=== PATIENT | male | born 1985 | race Caucasian/White ===

== ENCOUNTER 2018-08-16 13:41 | Emergency (ER) | payer OTHER, SELFPAY ==
[2018-08-16 13:42] VITALS: BP 157/100; PULSE 71; RESP 16; TEMP 36.9; O2SAT 100; BMI 27.5
[2018-08-16 14:02] VITALS: BP 151/94; PULSE 61; RESP 16; O2SAT 100
[2018-08-16 15:00] VITALS: BP 144/99; PULSE 61; RESP 16; O2SAT 100
--- NOTE | 2018-08-16 15:12 | ED.DCSUM_ITS ---
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 He presents with intermittent sacral low back pain that he describes as twinges. It became more severe over the last 12-24 hours. He localizes it to the sacral area and pain over the left and right issue tuberosity. He denies bowel or bladder dysfunction. He denies saddle paresthesia or anesthesia. He denies foot drop or quadricep weakness. He reports pushing on the sacral area results in improvement of his pain. Certain movements make it worse certain movements make it better. There is no history of trauma. Physical Examination: Blood pressure is elevated 144/99 heart rate 61 respirations 16 pulse ox 100% he is afebrile he appears in no discomfort. HEENT exam is unremarkable. Abdomen soft nontender bowel sounds are present normal. There is no paraspinal megaly. There is no palpable pulsatile mass. There is no abdominal bruit. Examination of the back and abdomen reveal no evidence of trauma. There is no pain palpation over the back. He had pain to palpation over the right and left issue tuberosity. Patella and ankle reflexes 2+. DP pulses palpable bilaterally. Straight leg test is negative. Gait was observed and normal with no foot drop. Test Results: None Emergency Department Course and Treatment: Patient was informed his pain is mechanical i.e. muscular skeletal low back not related to his aneurysm. Since Tylenol had no effect recommended anti-inflammatories as he has no contraindication. Treatment Plan: [id number] anti-inflammatory medication Disposition: Discharged home Impression: Low back pain without sciatica History of iliac artery aneurysm stenting History of chronic dissection of the SMA This note was generated with [employer] dictation software. It may contain incorrect words, spelling, and punctuation that were not noted in review of the chart prior to signing ED Disposition - Plan for ED Patient: Disposition: Home or Assisted Living Chief Complaint: Back Instructions: ED Neck Back Pain General Referrals: [facility] Doctor,Out of [Primary Care Provider] - 1 Week
[2018-08-16 15:18] VITALS: BP 144/99; PULSE 61; RESP 16; O2SAT 100
== END 2018-08-16 15:34 | disposition home or self-care (01) ==
LOC: ED 15:29
PROVIDERS: Emergency Provider Emergency Medicine
DX: M54.5 Low back pain (principal); R03.0 Elevated blood-pressure reading, without diagnosis of hypertension; I72.3 Aneurysm of iliac artery; Z98.890 Other specified postprocedural states
CPT/HCPCS: 99282

== ENCOUNTER 2018-11-03 12:25 | Emergency (ER) | payer OTHER, SELFPAY ==
[2018-11-03 12:25] VITALS: BP 148/101; PULSE 75; RESP 14; TEMP 36.8; O2SAT 95; BMI 26.6
--- NOTE | 2018-11-03 12:52 | RAD_ITS ---
STUDY: X-RAY CHEST REASON FOR EXAM: Male, 33 years old. Chest pain. TECHNIQUE: Single AP portable view of the chest. COMPARISON: None. FINDINGS: EKG electrodes are seen. The lungs are clear and expanded. Scattered calcified granulomas. There is no demonstrated pleural abnormality. Normal size heart. Normal mediastinum and yair. Normal visualized pulmonary arteries. Normal visualized aortic arch and descending thoracic aorta. Normal visualized thoracic spine. Normal visualized ribs, clavicles, and shoulders. There is no demonstrated abnormality of the visualized soft tissue structures of the upper abdomen. RAD/Chest 1 View (Portable) IMPRESSION: Normal x-ray examination of the chest. Electronically Signed: Lamonte Garduno MD at 13:59 EST , Service support ,
--- NOTE | 2018-11-03 12:52 | EKG12_ITS ---
Test Reason : CP Blood Pressure : / mmHG Vent. Rate : 074 BPM Atrial Rate : 074 BPM P-R Int : 148 ms QRS Dur : 104 ms QT Int : 410 ms P-R-T Axes : 075 071 056 degrees QTc Int : 455 ms Normal sinus rhythm Low voltage QRS Borderline ECG Confirmed by JIMMY CONTEH, BARBARA ([id number]), science editor TK DONOHUE ([id number]) on 11/15/2018 9:06:33 AM Referred By: SHERRY Confirmed By:BARBARA MARQUEZ MD
[2018-11-03 13:08] LABS: Absolute Neutrophil Count 7.8 X10^3/uL (2.0-7.7); Basophil# 0.01 X10^3/uL; Basophil% 0.1 % (0-1); Eosinophil# 0.08 X10^3/uL; Eosinophils% 0.8 % (0-5); Hematocrit 44.4 % (40-54); Hemoglobin 15.5 g/dl (13.0-16.5); Lymphocyte % 16.7 % (19-41); Mean Corp Hgb Conc 34.9 g/gl (32-36); Mean Corpuscular Hgb 29.4 pg (27.0-32.0); Mean Corpuscular Volume 84.3 fL (80-94); Mean Platelet Vol. 10.6 fl (6.2-12.0); Monocyte# 0.56 X10^3/uL; Monocyte% 5.5 % (0-10); Neutrophil # 7.84 X10^3/uL (2.7-7.7); Neutrophil % 76.7 % (47-70); Platelet Count 278 K/mm3 (150-450); RBC Distribution Width CV 12.1 % (11.6-14.6); RBC Distribution Width SD 36.6 fl (35.1-43.9); Red Blood Count 5.27 M/mm3 (4.6-6.2); White Blood Count 10.2 K/mm3 (4.4-11.0)
[2018-11-03 13:09] LABS: POSITIVE COUNT NO; POSITIVE DIFFERENTIAL NO; POSITIVE MORPHOLOGY NO
[2018-11-03 13:17] LABS: D-Dimer Quantitative (DVT/PE) 1.91 FEU/ug/m (0.27-0.49)
[2018-11-03 13:27] LABS: Anion Gap 8 (5-15); BUN 14 mg/dL (7-18); BUN/Creat Ratio 11.3 RATIO (10-20); Calcium,Total 9.1 mg/dL (8.5-10.1); Chloride 104 mmol/L (98-107); Creatinine, Serum 1.24 mg/dL (0.70-1.30); EST Glomerular Filtration Rate 72 mL/min (>60); Est Glom Filt Rate - Afr Amer 87 mL/min (>60); Estimated Creatinine Clearance 88.31 ml/min; Glucose 128 mg/dL (74-106); Lipase 75 U/L (73-393); Potassium 3.8 mmol/L (3.5-5.1); Sodium Level 138 mmol/L (136-145)
[2018-11-03 13:34] VITALS: BP 138/96; PULSE 67; RESP 16; O2SAT 98
[2018-11-03] MEDS: 0.9% Normal Saline 1,000 ML 150 ML IV (13:39)
[2018-11-03] MEDS: Aspirin 81 MG TAB.CHEW 324 MG PO (13:39)
--- NOTE | 2018-11-03 14:16 | CT_ITS ---
STUDY: CTA CHEST REASON FOR EXAM: Male, 33 years old. Chest pain radiating into the back. Question dissection. RADIATION DOSAGE (If Supplied By Facility): CTDIvol = ( 17.37 ) mGy, DLP = ( 882.98 ) mGycm TECHNIQUE: The examination was performed with the intravenous administration of 100 ml of Isovue 370 contrast material. Post-processing of the angiographic images was performed, with multiplanar reformation and 3D reconstruction. Individualized dose optimization techniques were used for this CT. COMPARISON: CTA of the abdomen, November 03, 2018. FINDINGS: Normal enhancement of the main pulmonary artery and right and left pulmonary arteries. Normal enhancement of the bilateral peripheral pulmonary arteries. There is no demonstrated pulmonary embolism. Normal thoracic aorta and visualized great vessels. No evidence of aneurysm. There is no demonstrated aortic dissection. Normal heart and pericardium. Normal mediastinum. Normal hilar regions. Normal visualized trachea and bronchi. The lungs are well expanded. Normal pulmonary parenchyma. Normal pleura. Normal chest wall structures. Normal osseous structures. There is fatty infiltration of liver. There is a saccular aneurysm of the main hepatic artery. Please refer to the CTA of the abdomen performed the same day and dictated separately for details. CT/CTA Chest W/WO Contrast IMPRESSION: 1. Normal CTA chest examination, without a demonstrated pulmonary embolism or arterial dissection. 2. Hepatic artery aneurysm. 3. Fatty infiltration of the liver. Electronically Signed: Mane Dougherty DO at 16:26 EST Tel [phone], Service support ,
--- NOTE | 2018-11-03 14:21 | CT_ITS ---
STUDY: CTA OF THE ABDOMINAL AORTA REASON FOR EXAM: Male, 33 years old. Pain radiating into the back. Question dissection. History of iliac artery repair, dissection mesenteric and hepatic artery aneurysms. RADIATION DOSAGE (If Supplied By Facility): CTDIvol = ( 17.37 ) mGy, DLP = ( 882.98 ) mGycm TECHNIQUE: Axial CT angiography multi-detector data acquisition was obtained from the diaphragm to the midpelvis following intravenous administration of 100 ml of Isovue 370 contrast. Axial images and MIP images were reconstructed from the axial data set. Post-processing of the angiographic images was performed, with multiplanar reformation and 3D reconstruction. Individualized dose optimization techniques were used for this CT. TECHNICAL QUALITY: Good COMPARISON: CTA of the chest, November 03, 2018. Descriptors of Narrowing: None (0%) Mild (< 50%) Moderate (50-70%) Severe (70-90%) Subtotal/Total Occlusion (90-100%) Non-Evaluable (technically non-diagnostic FINDINGS: Abdominal aorta: No demonstrated narrowing. Celiac artery: No demonstrated narrowing. There is a 1.1 x 1.0 x 1.1 cm saccular aneurysm off the main hepatic artery, best seen on image 123 of series 2. Superior mesenteric artery: There is a dissection of the superior mesenteric artery beginning approximately 2.5 cm below its origin. The larger false lumen lies to the right. It is uncertain of extension into the more distal branches. Inferior mesenteric artery: No demonstrated narrowing. Right renal artery(arteries): There are 2 right renal arteries both of which appear grossly normal. The larger main artery is inferior. Left renal artery(arteries): No demonstrated narrowing. Right common iliac artery: There is a stent in the proximal right common iliac artery which extends almost to the bifurcation. There is evidence of a thrombosed saccular aneurysm off the distal aspect of the vessel which the stent passes through. Right external iliac artery: No demonstrated narrowing. Right internal iliac artery: No demonstrated narrowing. Left common iliac artery: There is prominence left common iliac artery which measures 1.3 cm in diameter. This is only slightly less than the distal aorta (1.39 cm diameter). There is a question of a thrombosed dissection along its posterior lateral aspect extending to the bifurcation. This is best seen on images 181 through 189 of series 2 and on image 129 of series 604. Left external iliac artery: No demonstrated narrowing. Left internal iliac artery: No demonstrated narrowing. The lung bases are clear. The heart is normal in size. There is mild fatty infiltration liver without focal mass. Normal gallbladder and biliary ductal system. Normal spleen. Normal pancreas. Normal adrenal glands. Normal kidneys and ureters. Normal IVC and retroperitoneum. There is a retroaortic left renal vein. Normal stomach. Normal visualized small bowel. Normal visualized colon normal appendix. There is an umbilical hernia of omental fat. The abdominal wall is otherwise unremarkable. Normal osseous structures CT/CTA Abdomen W/WO Contrast IMPRESSION: 1. Saccular aneurysm off the main hepatic artery. 2. Dissection of the SMA. 3. Right common iliac stent was occluded saccular aneurysm off its distal portion of the right common iliac artery. 4. Question occluded aneurysm versus thrombosed dissection off the distal left common iliac artery. 5. Normal aorta. 6. Duplicated right renal artery. 7. Retroaortic left renal vein. 8. Fatty infiltration of the liver. Electronically Signed: Mane Dougherty DO at 16:23 EST Tel [phone], Service support ,
[2018-11-03] MEDS: MethylPREDNISolone 125 MG/2 ML Vial IV (14:35)
[2018-11-03] MEDS: LORazepam 2 MG/ML Syringe 1 MG IV (14:35)
[2018-11-03] MEDS: DiphenhydrAMINE 50 MG/ML Syringe 25 MG IV (14:35)
[2018-11-03 14:38] VITALS: BP 142/91; PULSE 73; RESP 14; O2SAT 100
--- NOTE | 2018-11-03 16:03 | ED.VISSUMM ---
- ER Visit Summary Date of Service: 11/03/18 Chief Complaint: [Pain] History of Present Illness: The patient is a 33 M [presents the emergency department chest pain that started yesterday. Patient describes a sharp stabbing pain is very quick in the center of his chest intermittently. Patient also has had a kind of a dollar pain in his left upper chest and at times of pain between his scapula. Patient states the pain does not seem to be brought on by activity or exertion. He denies any real shortness of breath. He had some mild nausea throughout the day today. Patient states he has a history of hypertension and has had an iliac artery aneurysm as well as an intestinal artery dissection and a aneurysm in the artery leading to his liver. Patient states that he is from [place] and sees a vascular surgeon in [place]. Patient visiting here for work.] Physical Examination: [HEENT-PERRLA, EOMI. Cranial nerves II through XII grossly intact. TMs clear. Mucous membranes moist. No adenopathy. Cardiovascular-regular rate and rhythm without murmur or ectopy Lungs-clear to auscultation, chest wall stable without crepitus or subcu emphysema Abdomen-normoactive bowel sounds, soft, nontender, no rebound or rigidity, no peritoneal signs. Extremities-intact ?4, normal range of motion, normal pulses, atraumatic] Test Results: [EKG obtained arrival shows sinus rhythm with a ventricular rate of 74 bpm with no acute I segment changes. CBC with differential is normal. Chemistries normal. Troponin is less than 0.015. D-dimer was elevated 1.91. Chest x-ray was normal. CTA of the chest and abdomen ordered and pending.] Emergency Department Course and Treatment: [Patient had to be premedicated with Solu-Medrol and Benadryl as well as Ativan to have a CTA performed. Patient claims allergy to IV dye. Patient asked me to obtain a CTA of his abdomen and pelvis as well as the chest given that he is scheduled soon to have a repeat scan of his abdomen to evaluate the abnormal findings mentioned above. Given his allergy to IV contrast dye he would prefer to have both test done today rather than have IV contrast 2 separate occasions. I feel this is certainly reasonable.] I asked to have a release of information have copy of patient's previous CTA of the abdomen and chest sent to our ER from [place] comparison. I do not feel his chest pain is cardiac in nature and is very atypical. Treatment Plan: [Care of patient turned over to evening physician awaiting CT results] Disposition: [pEnding] Impression: [Pending] This note was generated with [employer] dictation software. It may contain incorrect words, spelling, and punctuation that were not noted in review of the chart prior to signing ED Disposition - Plan for ED Patient: Chief Complaint: Chest Pain Referrals: [facility] Doctor,Out of [Primary Care Provider] -
--- NOTE | 2018-11-03 16:06 | ED.DCSUM_ITS ---
- ER Visit Summary Date of Service: 11/03/18 Chief Complaint: [Pain] History of Present Illness: The patient is a 33 M [presents the emergency department chest pain that started yesterday. Patient describes a sharp stabbing pain is very quick in the center of his chest intermittently. Patient also has had a kind of a dollar pain in his left upper chest and at times of pain between his scapula. Patient states the pain does not seem to be brought on by activity or exertion. He denies any real shortness of breath. He had some mild nausea throughout the day today. Patient states he has a history of hypertension and has had an iliac artery aneurysm as well as an intestinal artery dissection and a aneurysm in the artery leading to his liver. Patient states that he is from [place] and sees a vascular surgeon in [place]. Patient visiting here for work.] Physical Examination: [HEENT-PERRLA, EOMI. Cranial nerves II through XII grossly intact. TMs clear. Mucous membranes moist. No adenopathy. Cardiovascular-regular rate and rhythm without murmur or ectopy Lungs-clear to auscultation, chest wall stable without crepitus or subcu emphysema Abdomen-normoactive bowel sounds, soft, nontender, no rebound or rigidity, no peritoneal signs. Extremities-intact ?4, normal range of motion, normal pulses, atraumatic] Test Results: [EKG obtained arrival shows sinus rhythm with a ventricular rate of 74 bpm with no acute I segment changes. CBC with differential is normal. Chemistries normal. Troponin is less than 0.015. D-dimer was elevated 1.91. Chest x-ray was normal. CTA of the chest and abdomen ordered and pending.] Emergency Department Course and Treatment: [Patient had to be premedicated with Solu-Medrol and Benadryl as well as Ativan to have a CTA performed. Patient claims allergy to IV dye. Patient asked me to obtain a CTA of his abdomen and pelvis as well as the chest given that he is scheduled soon to have a repeat scan of his abdomen to evaluate the abnormal findings mentioned above. Given his allergy to IV contrast dye he would prefer to have both test done today rather than have IV contrast 2 separate occasions. I feel this is certainly reasonable.] I asked to have a release of information have copy of patient's previous CTA of the abdomen and chest sent to our ER from [place] comparison. I do not feel his chest pain is cardiac in nature and is very atypical. Treatment Plan: [Care of patient turned over to evening physician awaiting CT results] Disposition: [pEnding] Impression: [Pending] This note was generated with [employer] dictation software. It may contain incorrect words, spelling, and punctuation that were not noted in review of the chart prior to signing ED Disposition - Plan for ED Patient: Chief Complaint: Chest Pain Referrals: [facility] Doctor,Out of [Primary Care Provider] -
--- NOTE | 2018-11-03 16:49 | ED.DEP ---
ED Disposition - Plan for ED Patient: Disposition: Home or Assisted Living Chief Complaint: Chest Pain Instructions: ED Chest Pain NonCardiac Referrals: [facility] Doctor,Out of [Primary Care Provider] -
[2018-11-03 16:57] VITALS: BP 125/85; PULSE 75; RESP 17; O2SAT 96
[2018-11-03 17:17] VITALS: BP 113/79; PULSE 67; RESP 16; O2SAT 99
== END 2018-11-03 17:39 | disposition home or self-care (01) ==
PROVIDERS: Emergency Provider Emergency Medicine
DX: R07.9 Chest pain, unspecified (principal); I72.3 Aneurysm of iliac artery; R11.0 Nausea; I10 Essential (primary) hypertension; R74.8 Abnormal levels of other serum enzymes; Z91.041 Radiographic dye allergy status
CPT/HCPCS: 71045; 71275; 74175; 80048; 83690; 84484; 85025; 85379; 93005; 96361; 96374; 96375; 99284; J7030; Q9967